=== PATIENT | female | born 1995 | race Caucasian/White ===

== ENCOUNTER 2018-04-05 22:48 | Emergency (ER) | payer OTHER ==
[2018-04-05 22:55] VITALS: BP 127/73; PULSE 67; TEMP 98.2; BMI 31.1
[2018-04-05] MEDS ORDERED: SODIUM CHLORIDE 1,000 ML IV STA (23:15)
[2018-04-05] MEDS ORDERED: ACETAMINOPHEN 1000 MG/100 ML VIAL (NON FORMULARY) IVPB ONE (23:15)
--- NOTE | 2018-04-05 23:25 | PDOC ---
History of Present Illness - General History Source: Patient Exam Limitations: No Limitations - History of Present Illness Initial Comments: 04/05/18 23:27 The patient is a 22 year old female, with no significant PMH. who presents to the emergency department for evaluation of intermittent LRQ pain for approximately 3 days. She states she was at work when she began to feel a sharp pain in her LRQ. Patient notes a subjective fever 2 days ago. LMP mid February - noted this is normal for patient to get every 2 months. Denies history of cysts. The patient denies chest pain, shortness of breath, headache and dizziness. Denies fever, chills, nausea, vomit, diarrhea and constipation. Denies dysuria, frequency, urgency and hematuria. Allergies: NKA Social history: None reported <Marleny Frey - Last Filed: 04/05/18 23:28> - General History Source: Patient Exam Limitations: No Limitations <Ye Isaac - Last Filed: 04/06/18 03:39> - General Chief Complaint: Pain, Acute Stated Complaint: RIGHT/SIDE PAIN Time Seen by Provider: 04/05/18 23:07 Past History <Marleny Frey - Last Filed: 04/05/18 23:28> - Past Medical History COPD: No - Suicide/Smoking/Psychosocial Hx Smoking History: Never smoked Have you smoked in the past 12 months: No Information on smoking cessation initiated: No Hx Alcohol Use: No Drug/Substance Use Hx: No <Ye Isaac - Last Filed: 04/06/18 03:39> - Past Medical History Allergies/Adverse Reactions: Allergies Allergy/AdvReac Type Severity Reaction Status Date / Time No Known Allergies Allergy Verified 04/05/18 22:55 Home Medications: Ambulatory Orders Acetaminophen [Tylenol] 650 mg PO Q4H PRN #20 tablet 04/06/18 Cephalexin [Keflex] 500 mg PO BID #14 capsule 04/06/18 Review of Systems - Review of Systems Comments:: 04/05/18 23:29 GENERAL/CONSTITUTIONAL: No fever or chills. No weakness. HEAD, EYES, EARS, NOSE AND THROAT: No change in vision. No ear pain or discharge. No sore throat. CARDIOVASCULAR: No chest pain or shortness of breath. RESPIRATORY: No cough, wheezing, or hemoptysis. GASTROINTESTINAL: (+) Sharp LRQ pain. No nausea, vomiting, diarrhea or constipation. GENITOURINARY: No dysuria, frequency, or change in urination. MUSCULOSKELETAL: No joint or muscle swelling or pain. No neck or back pain. SKIN: No rash NEUROLOGIC: No headache, vertigo, loss of consciousness, or change in strength/ sensation. ENDOCRINE: No increased thirst. No abnormal weight change. HEMATOLOGIC/LYMPHATIC: No anemia, easy bleeding, or history of blood clots. ALLERGIC/IMMUNOLOGIC: No hives or skin allergy. <ShanteMarleny - Last Filed: 04/05/18 23:28> *Physical Exam - Vital Signs Last Vital Signs Temp Pulse Resp BP Pulse Ox 98.2 F 67 16 127/73 100 04/05/18 22:53 04/05/18 22:53 04/05/18 22:53 04/05/18 22:53 04/05/18 22:53 - Physical Exam Comments: 04/05/18 23:28 GENERAL: Awake, alert, and fully oriented, in no acute distress HEAD: No signs of trauma EYES: PERRLA, EOMI, sclera anicteric, conjunctiva clear ENT: Auricles normal inspection, hearing grossly normal, nares patent NECK: Normal ROM, supple. LUNGS: Breath sounds equal, clear to auscultation bilaterally. No wheezes, and no crackles HEART: Regular rate and rhythm, normal S1 and S2, no murmurs, rubs or gallops ABDOMEN: (+) RLQ tender to palpation. Soft, No guarding, no rebound. No masses EXTREMITIES: Normal range of motion, no edema. No clubbing or cyanosis. No cords, erythema, or tenderness NEUROLOGICAL: Cranial nerves II through XII grossly intact. Normal speech. SKIN: Warm, Dry, normal turgor, no rashes or lesions noted. <ShanteMarleny - Last Filed: 04/05/18 23:28> - Vital Signs Last Vital Signs Temp Pulse Resp BP Pulse Ox 98.2 F 67 16 127/73 100 04/05/18 22:53 04/05/18 22:53 04/05/18 22:53 04/05/18 22:53 04/05/18 22:53 <Ye Isaac - Last Filed: 04/06/18 03:39> Moderate Sedation - Procedure Monitoring Vital Signs: Procedure Monitoring Vital Signs Temperature 98.2 F 04/05/18 22:53 Pulse Rate 67 04/05/18 22:53 Respiratory Rate 16 04/05/18 22:53 Blood Pressure 127/73 04/05/18 22:53 O2 Sat by Pulse Oximetry (%) 100 04/05/18 22:53 <Marleny Frey - Last Filed: 04/05/18 23:28> - Procedure Monitoring Vital Signs: Procedure Monitoring Vital Signs Temperature 98.2 F 04/05/18 22:53 Pulse Rate 67 04/05/18 22:53 Respiratory Rate 16 04/05/18 22:53 Blood Pressure 127/73 04/05/18 22:53 O2 Sat by Pulse Oximetry (%) 100 04/05/18 22:53 <Ye Isaac - Last Filed: 04/06/18 03:39> ED Treatment Course - LABORATORY CBC & Chemistry Diagram: 04/05/18 23:25 04/05/18 23:25 - RADIOLOGY Radiology Studies Ordered: Category Date Time Status ABDOMEN & PELVIS CT WITH CONTR [CT] Stat CT Scan 04/05/18 23:15 Ordered TRANSVAGINAL ULTRASOUND US [US] Stat Ultrasound 04/05/18 23:15 Ordered <Ye Isaac - Last Filed: 04/06/18 03:39> Medical Decision Making - Medical Decision Making 04/05/18 23:21 A portion of this note was documented by scribe services under my direction. I have reviewed the details of the note, within reason, and agree with the documentation with the following case summary and management plan written by me. Patient treated in the ED. Nursing notes are reviewed and incorporated into the medical decision-making. Vital signs reviewed. Peripheral IV access obtained by the nurse, laboratory studies are drawn and sent, reviewed and interpreted by myself. Vital Signs Temp Pulse Resp BP Pulse Ox 98.2 F 67 16 127/73 100 04/05/18 22:53 04/05/18 22:53 04/05/18 22:53 04/05/18 22:53 04/05/18 22:53 22 year old female patient with no past medical history presents with RLQ pain x 3 days. The patient reported waking up with initially intermittent pressure RLQ pain with no radiation. Reported tactile fevers 2 days ago, but denies fevers now. Denies nausea, vomiting, diarrhea, dysuria. LMP ~ 1 month ago, but pt reports that she's atypical. Differential: r/o appendencitis, ovarian cyst. Pt with minimal pain, less likely to be torsion. Labs including UA/UC, CT abdomen and pelvis, transvaginal ultrasound. Reassess. 04/06/18 03:24 CBC, BMP 04/05/18 23:25 04/05/18 23:25 CMP Sodium 137 mmol/L (136-145) 04/05/18 23:25 Potassium 4.0 mmol/L (3.5-5.1) 04/05/18 23:25 Chloride 105 mmol/L (98-107) 04/05/18 23:25 Carbon Dioxide 30 mmol/L (21-32) 04/05/18 23:25 Anion Gap 2 MMOL/L (8-16) L 04/05/18 23:25 BUN 12 mg/dL (7-18) 04/05/18 23:25 Creatinine 0.7 mg/dL (0.55-1.3) 04/05/18 23:25 Creat Clearance w eGFR > 60 (>60) 04/05/18 23:25 Random Glucose 88 mg/dL (74-106) 04/05/18 23:25 Calcium 9.1 mg/dL (8.5-10.1) 04/05/18 23:25 Total Bilirubin 0.2 mg/dL (0.2-1) 04/05/18 23:25 AST 24 U/L (15-37) 04/05/18 23:25 ALT 37 U/L (13-61) 04/05/18 23:25 Alkaline Phosphatase 128 U/L (45-117) H 04/05/18 23:25 Total Protein 8.3 g/dl (6.4-8.2) H 04/05/18 23:25 Albumin 4.0 g/dl (3.4-5.0) 04/05/18 23:25 Urine Test Results Urine Color Ltyellow 04/05/18 23:05 Urine Appearance Slcloudy 04/05/18 23:05 Urine pH 5.0 (5.0-8.0) 04/05/18 23:05 Ur Specific [place] 1.021 (1.010-1.035) 04/05/18 23:05 Urine Protein Negative (NEGATIVE) 04/05/18 23:05 Urine Glucose (UA) Negative (NEGATIVE) 04/05/18 23:05 Urine Ketones Negative (NEGATIVE) 04/05/18 23:05 Urine Blood 1+ (NEGATIVE) H 04/05/18 23:05 Urine Nitrite Negative (NEGATIVE) 04/05/18 23:05 Urine Bilirubin Negative (<2.0 mg/dL) 04/05/18 23:05 Ur Leukocyte Esterase 2+ (NEGATIVE) H 04/05/18 23:05 Ur Epithelial Cells Moderate /HPF (FEW) 04/05/18 23:05 Urine Mucus Rare 04/05/18 23:05 04/06/18 03:24 Transvaginal ultrasound reviewed. No acute findings. CT abdomen and pelvis reviewed. No acute findings. 04/06/18 03:31 Pt reports feeling better. AT this time, it isn't exactly clear what's causing her pain. She does have 14 WBC in her urine but no WBC. But given her pain and 14 WBC, will treat as UTI for now. Will give keflex and follow up with PMD. Results given to the patient. Patient feels comfortable going home. I discussed the physical exam findings, ancillary test results and final diagnoses with the patient. I answered all of the patient's questions. The patient was satisfied with the care received and felt comfortable with the discharge plan and treatment plan. The patient will call their primary care physician within 24 hours to arrange follow-up and will return to the Emergency Department with any new, persistant or worsening symptoms. <Ye Isaac - Last Filed: 04/06/18 03:39> *DC/Admit/Observation/Transfer - Attestations Scribe Attestion: 04/05/18 23:29 Documentation prepared by Marleny Frey, acting as medical reimbursement specialist for Ye Isaac MD. <Marleny Frey - Last Filed: 04/05/18 23:28> - Discharge Dispostion Decision to Admit order: No <Ye Isaac - Last Filed: 04/06/18 03:39> Diagnosis at time of Disposition: Abdominal pain Qualifiers: Abdominal location: unspecified location Qualified Code(s): R10.9 - Unspecified abdominal pain - Discharge Dispostion Disposition: HOME Condition at time of disposition: Improved - Prescriptions Prescriptions: Acetaminophen [Tylenol] 650 mg PO Q4H PRN #20 tablet PRN Reason: Pain Cephalexin [Keflex] 500 mg PO BID #14 capsule - Patient Instructions Printed Discharge Instructions: DI for Abdominal Pain-Adult Additional Instructions: You have received a CT scan and ultrasound. At this time, they are normal. Your urine may potentially have an infection and may explain why you have pain your abdomen. Please take the antibiotics, cephalexin 500 mg every 12 horus for 1 week. You may take 650 mg tylenol every 4 hours as needed for pain. Please drink plenty of fluids and rest. Please follow up with your doctor.
[2018-04-05] MEDS ORDERED: ACETAMINOPHEN INJECTION 100 ML IVPB ONE (23:43)
[2018-04-05 23:51] LABS: BASO % 0.2 % (0-2.0); EOS % 1.3 % (0-4.5); HEMATOCRIT 39.4 % (32.4-45.2); HEMOGLOBIN 13.4 GM/dL (10.7-15.3); LYMPH % 35.7 % (8-40); MCH 28.4 pg (25.7-33.7); MCHC 34.1 g/dl (32.0-36.0); MEAN CELL VOLUME 83.2 fl (80-96); MEAN PLT VOLUME 7.9 fl (7.5-11.1); MONO % 9.9 % (3.8-10.2); NEUT % 52.9 % (42.8-82.8); PLATELET COUNT 328 K/MM3 (134-434); RBC 4.74 M/mm3 (3.60-5.2); RDW 13.6 % (11.6-15.6); WHITE BLOOD COUNT 11.1 K/mm3 (4.0-10.0)
[2018-04-05 23:57] LABS: URINE APPEARANCE SLCLOUDY; URINE BILIRUBIN NEGATIVE (<2.0 mg/dL); URINE COLOR LTYELLOW; URINE GLUCOSE (UA) NEGATIVE (NEGATIVE); URINE KETONE NEGATIVE (NEGATIVE); URINE LEUK ESTERASE 2+ (NEGATIVE); URINE NITRITE NEGATIVE (NEGATIVE); URINE PROTEIN NEGATIVE (NEGATIVE); URINE UROBILINOGEN NEGATIVE mg/dL (0.2-1.0)
[2018-04-06 00:08] LABS: HCG,QUALITATIVE URINE Negative
[2018-04-06 00:24] LABS: ALK PHOS 128 U/L (45-117); ANION GAP 2 MMOL/L (8-16); BILIRUBIN,TOTAL 0.2 mg/dL (0.2-1); BLOOD UREA NITROGEN 12 mg/dL (7-18); CALCIUM 9.1 mg/dL (8.5-10.1); CHLORIDE 105 mmol/L (98-107); CO2 30 mmol/L (21-32); CREATININE 0.7 mg/dL (0.55-1.3); GLUCOSE,RANDOM 88 mg/dL (74-106); SGOT/AST 24 U/L (15-37); SGPT/ALT 37 U/L (13-61); SODIUM 137 mmol/L (136-145); TOT PROT 8.3 g/dl (6.4-8.2)
[2018-04-06 00:42] LABS: EPI CELLS MODERATE /HPF (FEW); URINE MUCUS RARE
[2018-04-06] MEDS ORDERED: KETOROLAC TROMETHAMINE 30 MG/1 ML VIAL IVPUSH ONE (03:30)
[2018-04-06] MEDS ORDERED: CEPHALEXIN MONOHYDRATE 500 MG CAPSULE (UD) PO ONE (03:30)
[2018-04-06] MEDS ORDERED: CEPHALEXIN MONOHYDRATE 500 MG CAPSULE (UD) ONE (03:35)
[2018-04-06] MEDS ORDERED: KETOROLAC TROMETHAMINE 30 MG/1 ML VIAL ONE (03:36)
== END 2018-04-06 03:40 | disposition home or self-care (01) ==
LOC: JER 22:48
PROC: 3E0337Z Introduction of Electrolytic and Water Balance Substance into Peripheral Vein, Percutaneous Approach (ICD-10-PCS; principal; 2018-04-05)
PROC: 3E033NZ Introduction of Analgesics, Hypnotics, Sedatives into Peripheral Vein, Percutaneous Approach (ICD-10-PCS; 2018-04-05)
PROC: 3E0333Z Introduction of Anti-inflammatory into Peripheral Vein, Percutaneous Approach (ICD-10-PCS; 2018-04-05)
DX: N39.0 Urinary tract infection, site not specified (principal)
CPT/HCPCS: 36415; 74177-TC; 76830-TC; 80053; 81003; 81015; 84703; 85025; 99282-25; J0131; J7030

== ENCOUNTER 2021-09-07 09:20 | Emergency (ER) | payer OTHER ==
[2021-09-07 09:32] VITALS: BP 108/74; PULSE 66; RESP 16; TEMP 98.3
[2021-09-07] MEDS ORDERED: ONDANSETRON 4 MG/2 ML VIAL IVPUSH ONE (10:16)
[2021-09-07] MEDS ORDERED: SODIUM CHLORIDE 1,000 ML IV STA (10:16)
[2021-09-07] MEDS ORDERED: morphine CARPU-JECT 4 MG/1 ML DISP.SYRIN IVPUSH ONE (10:16)
[2021-09-07 10:25] LABS: EPI CELLS >36 /uL (0-25.1); HCG,QUALITATIVE URINE Negative; HYALINE CASTS 3 /uL (0-3.1); PH,URINE 5.5 (5.0-8.0); URINE APPEARANCE TURBID; URINE BACTERIA >9,000 /uL (0-1359); URINE BILIRUBIN NEGATIVE (NEGATIVE); URINE COLOR YELLOW; URINE GLUCOSE (UA) NEGATIVE (NEGATIVE); URINE KETONE NEGATIVE (NEGATIVE); URINE LEUK ESTERASE 3+ (NEGATIVE); URINE NITRITE NEGATIVE (NEGATIVE); URINE PROTEIN TRACE (NEGATIVE); URINE UROBILINOGEN 0.2 mg/dL (0.2-1.0); URINE WBC 1678 /uL (0-25.8)
[2021-09-07] MEDS ORDERED: morphine SULFATE 4 MG/ML VIAL ONE (10:51)
[2021-09-07 10:52] LABS: URINE RBC 30 /uL (0-23.9)
[2021-09-07] MEDS ORDERED: ONDANSETRON 4 MG/2 ML VIAL ONE (10:52)
[2021-09-07 11:11] LABS: BASO % 0.4 % (0-2.0); EOS % 2.2 % (0-4.5); HEMATOCRIT 41.1 % (32.4-45.2); HEMOGLOBIN 13.6 GM/dL (10.7-15.3); LYMPH % 28.7 % (8-40); MEAN CELL VOLUME 81.7 fl (80-96); MEAN PLT VOLUME 7.7 fl (7.5-11.1); MONO % 7.9 % (3.8-10.2); NEUT % 60.8 % (42.8-82.8); PLATELET COUNT 352 10^3/uL (134-434); RBC 5.03 M/mm3 (3.60-5.2); RDW 13.8 % (11.6-15.6); WHITE BLOOD COUNT 8.2 K/mm3 (4.0-10.0)
[2021-09-07 11:36] LABS: ALBUMIN 3.9 g/dl (3.4-5.0); BLOOD UREA NITROGEN 11.5 mg/dL (7-18); CALCIUM 9.6 mg/dL (8.5-10.1)
[2021-09-07 11:39] LABS: CREATININE 0.7 mg/dL (0.55-1.3)
[2021-09-07 11:41] LABS: BILIRUBIN,TOTAL 0.4 mg/dL (0.2-1); TOT PROT 8.2 g/dl (6.4-8.2)
== END 2021-09-07 14:34 | disposition home or self-care (01) ==
LOC: JER 09:20
PROC: 3E033NZ Introduction of Analgesics, Hypnotics, Sedatives into Peripheral Vein, Percutaneous Approach (ICD-10-PCS; principal; 2021-09-07)
PROC: 3E033GC Introduction of Other Therapeutic Substance into Peripheral Vein, Percutaneous Approach (ICD-10-PCS; 2021-09-07)
PROC: 3E0337Z Introduction of Electrolytic and Water Balance Substance into Peripheral Vein, Percutaneous Approach (ICD-10-PCS; 2021-09-07)
DX: N10 Acute pyelonephritis (principal)
CPT/HCPCS: 36415; 74177-TC; 80053; 81003; 83690; 84703; 85025; 87086; 99285-25; C9803-CS; Q9967; U0003; U0005